=== PATIENT | female | born 1965 | race African-American/Black ===

== ENCOUNTER 2020-02-27 18:38 | Emergency (ER) | payer SELFPAY ==
--- NOTE | ~2020-02-27 | XR_ITS ---
EXAMINATION: XR chest 1V portable EXAM DATE: 02/27/2020 19:13 INDICATION: Left cerebellar hemorrhage. TECHNIQUE: Portable AP frontal chest x-ray was obtained. There is no prior study for comparison. FINDINGS: The lungs are clear. There are no pleural effusions. Cardiac silhouette is prominent but magnified on this AP technique. There is no pneumothorax suspected. The bones and soft tissues are unremarkable. IMPRESSION: No acute cardiopulmonary findings. Reviewed, dictated and finalized at location A.
--- NOTE | ~2020-02-27 | CT_ITS ---
EXAMINATION: CT brain wo con EXAM DATE: 02/27/2020 18:44 INDICATION: Temporary change in awareness. Stroke protocol. TECHNIQUE: Spiral CT of the head was performed without contrast. Axial, coronal and sagittal images were reviewed. The dose-length product (DLP) for this examination was 681.00 mGy-cm. The exposure w as tailored according to patient size, and iterative reconstruction (ASIR) was used as additional dos e reduction technique. There is no prior study for comparison. FINDINGS: There is acute hemorrhage in the left brachium pontis measuring up to about 3 cm, cerebella r white matter which is slightly across midline. Possible small amount of intraventricular extension into the fourth ventricle. No transtentorial herniation or obstructive hydrocephalus. No extra-axial collections. Scattered old bilateral lacunar infarctions. Mild atrophy and microangiopathy. Visualize d sinuses are well aerated. Mastoid air cells are well aerated. The soft tissue is unremarkable. IMPRESSION: 1. Acute left cerebellar, brachium pontis hemorrhage, possible fourth ventricular extension. 2. Old lacunar infarctions. As per stroke protocol if phoned these results to emergency room physician at 18:46 p.m. Reviewed, dictated and finalized at location A. IMPRESSION: 1. Acute left cerebellar, brachium pontis hemorrhage, possible fourth ventricu lar extension. 2. Old lacunar infarctions. As per stroke protocol if phoned these results to emergency room physician at 1 8:46 p.m.
--- NOTE | 2020-02-27 18:47 | ECG_ITS ---
Measurements Intervals [place] Rate: 121 P: 66 IA: 135 QRS: 24 QRSD: 98 T: 124 QT: 366 QTc: 521 Interpretive Statements SINUS TACHYCARDIA LEFT VENTRICULAR HYPERTROPHY AND ST-T CHANGE BORDERLINE T WAVE ABNORMALITY- DIFFUSE LEADS BASELINE WANDER- I, II, III, AVR, AVL, AVF, V1, V4-V6 ABNORMAL ECG Electronically Signed On 02-28-2020 7:14:33 CDT by Erasmo Keller D.O.
--- NOTE | 2020-02-27 18:53 | ED.NEUROSD ---
HPI - Neuro Symptoms/Deficit General Chief Complaint: Suspected CVA Stated Complaint: ?CVA Time Seen by Provider: 02/27/20 18:46 Source: EMS Mode of arrival: EMS Limitations: altered mental status History of Present Illness HPI Narrative: Patient is a 55-year-old female who presents to the emergency department via EMS as a stroke alert. Patient approximately 10 minutes prior to arrival of EMS had onset of nausea and vomiting and was poorly responsive on arrival of EMS. Patient is unable to provide significant history due to altered mental status. Patient was brought down to CT directly upon EMS arrival and noted to have intracranial hemorrhage. Patient has had vomiting here in the ED. Onset (ago): minute(s) Timing confirmed by: family member Review of Systems Review of Systems: ROS unobtainable: Yes unobtainable due to mental status PMFSH Past Medical History Medical History (Updated 02/27/20 @ 19:39 by Purvi Stubbs MD) CVA (cerebral vascular accident) Diabetes mellitus Hypertension Social History Social History (Updated 02/27/20 @ 19:05 by Purvi Stubbs MD) Living arrangements: with family Exam Const: General: cooperative, alert, awake and ill appearing acutely Nutritional Appearance: thin Orientation/consciousness: oriented to person Limitations: altered mental status and physical limitations HENMT: Mouth: Yes lip normal and Yes moist mucous membranes Eyes: Alignment and Position: other (Forced gaze deviation to the right) Pupils: Equal, round and reactive pupils present Resp: Effort & Inspection: normal respiratory effort Auscultation: clear to auscultation bilaterally Cardio: Rate: tachycardic Rhythm: regular rhythm GI: GI Palp: Yes Soft to palpation and No Tenderness to palpation present (GI) Auscultation: normal bowel sounds Skin: General skin exam: normal color Neuro: General: oriented to person Speech: Abnormal speech present (Patient able to give name, but not answering questions) Motor exam (neuro): Normal motor muscle tone present throughout and Other motor observations present (Patient able to wiggle her toes and squeeze her hands bilaterally) Extrem: General: normal to inspection, full ROM and no clubbing, cyanosis or edema Psych: Mental Status: mental status grossly normal Affect: normal affect Attitude: cooperative Course Course Emergency Course: Patient with sizable intracranial hemorrhage and significantly elevated blood pressure with hypertensive crisis. Patient started on nicardipine drip to immediately work on gaining control of her elevated blood pressure. Arrangements made to transfer patient to stroke center/tertiary care facility for higher level of care. Patient sent by [facility] due to nursing care required and time sensitive nature. No medication history available and no family in the ED for additional history. Drs. lola urrutia at [facility] was able to access her records on epic and noted that she at one point had been on Plavix and Coreg. Consultations Consultation #1: Case discussed with Dr. Amaro, stroke service at [facility] who accepted patient for transfer and requested patient be sent time critical to the emergency department. Date: 02/27/20 Time: 19:10 Consultation #2: Case discussed with Dr. Batista in the emergency department at [facility] who accepted patient for transfer. Date: 02/27/20 Time: 19:12 Vital Signs Vital signs: Vital Signs Pulse Rate 69 02/27/20 18:59 Respiratory Rate 27 H 02/27/20 18:59 Blood Pressure 260/164 H 02/27/20 18:59 Pulse Oximetry 100 02/27/20 18:59 Pulse Rate 69 02/27/20 18:59 Respiratory Rate 27 H 02/27/20 18:59 Blood Pressure 260/164 H 02/27/20 18:59 Pulse Oximetry 100 02/27/20 18:59 Transfer Transfered to: [facility] (Emergency department) Transportation: [facility] Transfer rationale: Tertiary care/stroke center with availa
[2020-02-27 18:59] VITALS: BP 260/164; PULSE 69; RESP 27; O2SAT 100
[2020-02-27] MEDS: niCARdipine 20 MG/200 ML 20 MG/200 ML BAG 50 MG IV CONT (19:09)
[2020-02-27 19:22] LABS: Basophils Absolute Auto 0.1 K/mm3 (0.0-0.1); Basophils Percent Auto 0.5 % (0.2-1.2); Eosinophils Absolute Auto 0.2 K/mm3 (0-0.3); Eosinophils Percent Auto 1.1 % (0-4.4); Hematocrit 45.7 % (37.0-47.0); Hemoglobin 14.6 g/dL (12.0-15.0); Immature Granulocyte Absolute 0.05 K/mm3 (0.00-0.031); Immature Granulocyte Percent A 0.4 % (0-0.5); Lymphocytes Absolute Auto 4.38 K/mm3 (0.9-3.2); Lymphocytes Percent Auto 32.6 % (18.3-44.2); Mean Corpuscular HGB Conc 31.9 g/dl (32-36); Mean Corpuscular Hemoglobin 29.1 pg (26-34); Mean Corpuscular Volume 91.2 fl (80-100); Monocytes Absolute Auto 0.5 K/mm3 (0.1-0.6); Monocytes Percent Auto 3.9 % (2.6-8.5); Neutrophils Absolute Auto 8.2 K/mm3 (1.3-6.7); Neutrophils Percent Auto 61.5 % (45.5-73.1); Platelet Count Result 316 k/mm3 (150-375); Red Blood Count 5.01 M/mm3 (4.2-5.4); Red Cell Distribution Width 12.9 % (11.5-14.5); White Blood Count 13.4 K/mm3 (4.5-10.0)
[2020-02-27 19:31] LABS: INR 1.1; Prothrombin Time 13.9 Seconds (11.1-14.7)
[2020-02-27 19:32] LABS: Partial Thromboplastin Time 23.1 SECONDS (22.3-36.8)
[2020-02-27 19:37] LABS: Alanine Aminotransferase 11 U/L (4-35); Albumin Level 3.9 g/dL (3.5-5.1); Alkaline Phosphatase 84 U/L (38-126); Aspartate Amino Transferase 22 U/L (14-36); Bilirubin,Total 0.4 mg/dL (0.2-1.3); Blood Urea Nitrogen 11 mg/dL (7-17); Calcium 8.9 mg/dL (8.4-10.2); Carbon Dioxide 28 mmol/L (22-30); Chloride 107 mmol/L (98-107); Estimated Glomerular Filt Rate > 60; Glucose 194 mg/dL (65-105); Potassium 2.6 mmol/L (3.4-5.0); Sodium 142 mmol/L (137-145)
[2020-02-27 19:46] LABS: Troponin I 0.024 ng/mL (0.000-0.034)
[2020-02-29 08:06] LABS: Glucose Point of Care 187 (65-105)
== END 2020-02-27 19:40 | disposition short-term general hospital (02) ==
PROVIDERS: Emergency Medicine; Emergency Provider Emergency Medicine
DX: I61.9 Nontraumatic intracerebral hemorrhage, unspecified (principal); I16.9 Hypertensive crisis, unspecified; E11.9 Type 2 diabetes mellitus without complications; I10 Essential (primary) hypertension
CPT/HCPCS: 36415; 70450; 71045; 80053; 84484; 85025; 85610; 85730; 93005; 96365; 99285